=== PATIENT | male | born 1960 | race Caucasian/White ===

== ENCOUNTER 2017-03-08 22:16 | Emergency (ER) | payer BC ==
--- NOTE | 2017-03-08 23:04 | RAD ---
HISTORY: Fall, right foot pain COMPARISONS: None VIEWS: 3, Frontal, lateral, and oblique views of the right foot FINDINGS: BONE DENSITY: Normal. BONES: There is a nondisplaced fracture of the base of the fifth metatarsal. JOINTS: There is osteoarthritis of the first MTP joint ALIGNMENT: There is no dislocation. SOFT TISSUES: Unremarkable. OTHER FINDINGS: None. IMPRESSION: NONDISPLACED FRACTURE OF THE BASE OF THE FIFTH METATARSAL
--- NOTE | 2017-03-09 00:11 | ED ---
Lower Extremity - HPI Summary HPI Summary: 56M presents with right foot pain. He states he fell of a stone wall and twisted his foot. He denies any numbness or tingling. He has been ambulating with pain. He has not taken anything for his pain. He states he is going to a trip this weekend and does not want a cast. He denies any previous injury to the area. He denies any ankle pain. - History of Current Complaint Chief Complaint: EDExtremityLower Stated Complaint: FALL/RT FOOT INJURY Time Seen by Provider: 03/08/17 23:21 Pain Intensity: 2 - Allergies/Home Medications Allergies/Adverse Reactions: Allergies Allergy/AdvReac Type Severity Reaction Status Date / Time No Known Allergies Allergy Verified 03/08/17 23:22 PMH/Surg Hx/FS Hx/Imm Hx Endocrine/Hematology History: Denies: Hx Anticoagulant Therapy Respiratory History: Denies: Hx Asthma Infectious Disease History: No Infectious Disease History: Denies: Traveled Outside the [place] in Last 30 Days - Family History Known Family History: Positive: Cardiac Disease - Social History Alcohol Use: Rare Substance Use Type: Reports: None Smoking Status (MU): Never Smoked Tobacco Review of Systems Negative: Fever Negative: Chest Pain Negative: Shortness Of Breath Positive: Myalgia - right foot pain All Other Systems Reviewed And Are Negative: Yes Physical Exam Triage Information Reviewed: Yes Vital Signs On Initial Exam: Initial Vitals Pulse Resp BP Pulse Ox 58 18 148/88 100 03/08/17 22:23 03/08/17 22:23 03/08/17 22:23 03/08/17 22:23 Vital Signs Reviewed: Yes Appearance: Positive: Well-Appearing Skin: Positive: Warm, Dry Head/Face: Positive: Normal Head/Face Inspection Eyes: Positive: Normal, Conjunctiva Clear Respiratory/Lung Sounds: Positive: Clear to Auscultation, Breath Sounds Present Cardiovascular: Positive: Normal, RRR Musculoskeletal: Positive: Other - tender over right 5th metatarsal with edema present, good pulses, capillary refill < 2 secs, sensation grossly intact, no step off Diagnostics - Vital Signs Vital Signs Temp Pulse Resp BP Pulse Ox 03/08/17 23:20 98.6 F 58 16 150/85 100 03/08/17 22:23 58 18 148/88 100 - Laboratory Lab Statement: Any lab studies that have been ordered have been reviewed, and results considered in the medical decision making process. - Radiology foot Xray Interpretation: Positive (See Comments) - IMPRESSION: NONDISPLACED FRACTURE OF THE BASE OF THE FIFTH METATARSAL Radiology Interpretation Completed By: Radiologist Lower Extremity Course/Dx - Course Course Of Treatment: 56M presents with right foot pain today s/p falling on foot. pain is greatest over pinky toe. has edema present there. on exam tender over head of 5th metarsal. xray shows fracture there. discussed with patient and patient would only like a walking boot and with follow up with ortho. gave crutches to try and stay over of it as much as possible. patient will take ibuprofen for pain. patient understands and agrees with plan - Diagnoses Differential Diagnosis/HQI/PQRI: Positive: Fracture (Closed), Sprain, Strain Provider Diagnoses: Nondisplaced fracture of fifth right metatarsal bone Discharge - Discharge Plan Condition: Good Disposition: HOME Patient Education Materials: Foot Fracture in Adults (ED) Referrals: Non Staff,Doctor [Primary Care Provider] - Frankie Jaramillo MD [Medical Doctor] - Additional Instructions: Take Tylenol or ibuprofen every 6 hours as needed for pain Apply ice, rest, elevate Keep boot on area, keep off foot as much as possible Follow up with ortho Return to ED if any new or worsening symptoms
[2017-03-09 01:42] VITALS: BP 130/77
== END 2017-03-09 01:30 | disposition home or self-care (01) ==
LOC: ED 22:16
DX: S92.354A Nondisplaced fracture of fifth metatarsal bone, right foot, initial encounter for closed fracture (principal); W17.89XA Other fall from one level to another, initial encounter; Y93.9 Activity, unspecified; Y92.9 Unspecified place or not applicable
CPT/HCPCS: 99282

== ENCOUNTER 2017-06-07 18:27 | Observation (INO) | payer BC ==
[2017-06-07 19:21] LABS: Hematocrit 43 % (42-52); Hemoglobin 14.3 g/dl (14.0-18.0); Mean Corpuscular HGB Conc 34 g/dl (31-36); Mean Corpuscular Hemoglobin 29 pg (27-31); Mean Corpuscular Volume 87 fL (80-94); Mean Platelet Volume 8 um3 (7.4-10.4); Red Blood Count 4.89 10^6/ul (4.0-5.4); Red Cell Distribution Width 13 % (10.5-15); White Blood Count 6.6 10^3/ul (3.5-10.8)
[2017-06-07 19:36] LABS: Albumin 4.5 g/dL (3.2-5.2); BUN/Creatinine Ratio 12.7 (8-20); Calcium 9.5 mg/dL (8.6-10.3); EGFR African American 81.8 (>60); EGFR Non-African American 63.6 (>60); Globulin 2.3 g/dL (2-4); Magnesium 2.4 mg/dL (1.9-2.7); Potassium 4.3 mmol/L (3.5-5.0); Total Bilirubin 0.6 mg/dL (0.2-1.0); Total Protein 6.8 g/dL (6.4-8.9)
[2017-06-07 19:37] LABS: Troponin I 0.03 ng/mL (<0.04)
[2017-06-07] MEDS ORDERED: Acetaminophen TAB* 325 MG PO PRN (20:40)
[2017-06-07] MEDS ORDERED: CMCS: Melatonin (NF) 3 MG TAB PO PRN (20:42)
[2017-06-07] MEDS ORDERED: Ondansetron INJ* 2 MG/ML VIAL IV PRN (20:42)
[2017-06-07] MEDS ORDERED: Heparin DRIP 25,000 UNITS(*) 25,000 UNITS/500 ML BAG IVPB SCH (20:45)
[2017-06-07] MEDS ORDERED: NS 0.9% 1000 ML* 1,000 ML IV ONE (20:45)
[2017-06-07 20:58] LABS: TSH (Thyroid Stimulating Horm) 1.88 mcIU/mL (0.34-5.60)
[2017-06-07] MEDS ORDERED: Heparin VIAL(*) 5000 UNITS/ML VIAL (FIVE THOUSAND) IV SCH (21:00)
--- NOTE | 2017-06-07 21:32 | ED ---
Dru Tamez Thomas, scribed for Alex Navarro MD on 06/07/17 at 1933 . Palpitations / Dysrhythmia - HPI Summary HPI Summary: The pt is a 56 y/o M BIBA c/o palpitations characterized fast and not a good pulse that began this morning. He had an appointment earlier today with his PMD for this complaint and was referred to [facility] ED. The palpitations are aggravated and alleviated by nothing. The patient treated the palpitations with ASA this morning as well as by EMS en route to [facility]. He still feels these palpitations in the ED. Pt additionally c/o lightheadedness, dizziness, and shortness of breath on exertion. Pt denies CP or any other pains. He says that he went on a strenuous bike ride earlier today. He says that he goes on 20-25 mile bike rides a few times a week. He denies any caffeine intake today. PMHx: previously healthy. PSHx: R ankle repair. SHx: no smoking, rare alcohol use, no illicit drug use. FHx: CAD. - History of Current Complaint Chief Complaint: EDDysrhythmPalp Time Seen by Provider: 06/07/17 18:31 Hx Obtained From: Patient Onset/Duration: Sudden Onset, Lasting Hours - onset this morning, Still Present Character: Fast, Irregular - "not a good pulse" Aggravating: Nothing Alleviating: Nothing Associated Signs & Symptoms: Dizzy, Shortness of Breath - on exertion Related History: Similar Episode/Dx as - No similar prior episodes. - Allergy/Home Medications Allergies/Adverse Reactions: Allergies Allergy/AdvReac Type Severity Reaction Status Date / Time No Known Allergies Allergy Verified 03/08/17 23:22 PMH/Surg Hx/FS Hx/Imm Hx Previously Healthy: Yes Endocrine/Hematology History: Denies: Hx Anticoagulant Therapy Respiratory History: Denies: Hx Asthma - Surgical History Surgery Procedure, Year, and Place: L ankle repair Infectious Disease History: No Infectious Disease History: Denies: Traveled Outside the [place] in Last 30 Days - Family History Known Family History: Positive: Cardiac Disease - Social History Alcohol Use: Rare Substance Use Type: Reports: None Smoking Status (MU): Never Smoked Tobacco Review of Systems Negative: Fever Positive: Palpitations - characterized as fast . Negative: Chest Pain Positive: Shortness Of Breath - on exertion Negative: Other - NEG: any other pains Neurological: Other - POS: lightheadedness, dizziness All Other Systems Reviewed And Are Negative: Yes Physical Exam Triage Information Reviewed: Yes Vital Signs On Initial Exam: Initial Vitals Temp Pulse Resp BP Pulse Ox 98.5 F 89 14 133/102 96 06/07/17 18:43 06/07/17 18:43 06/07/17 18:43 06/07/17 18:43 06/07/17 18:43 Vital Signs Reviewed: Yes Appearance: Positive: Well-Appearing, No Pain Distress, Well-Nourished Skin: Positive: Warm, Skin Color Reflects Adequate Perfusion, Dry Head/Face: Positive: Normal Head/Face Inspection Eyes: Positive: Normal ENT: Positive: Normal ENT inspection Neck: Positive: Supple, Nontender Respiratory/Lung Sounds: Positive: Clear to Auscultation, Breath Sounds Present Cardiovascular: Positive: Other - He has an irregular heartrate. Abdomen Description: Positive: Nontender, Soft Bowel Sounds: Positive: Present Musculoskeletal: Positive: Normal Neurological: Positive: Normal Psychiatric: Positive: Normal, Affect/Mood Appropriate - [place] Coma Scale Coma Scale Total: 15 Diagnostics - Vital Signs Vital Signs Temp Pulse Resp BP Pulse Ox 06/07/17 18:43 98.5 F 79 14 133/102 96 - Laboratory Lab Results: Lab Results 06/07/17 Range/Units 19:11 WBC 6.6 (3.5-10.8) 10^3/ul RBC 4.89 (4.0-5.4) 10^6/ul Hgb 14.3 (14.0-18.0) g/dl Hct 43 (42-52) % MCV 87 (80-94) fL MCH 29 (27-31) pg MCHC 34 (31-36) g/dl RDW 13 (10.5-15) % Plt Count 239 (150-450) 10^3/ul MPV 8 (7.4-10.4) um3 Neut % (Auto) 58.9 (38-83) % Lymph % (Auto) 26.4 (25-47) % [place] % (Auto) 10.5 H (1-9) % Eos % (Auto) 3.3 (0-6) % Baso % (Auto) 0.9 (0-2) % Absolute Neuts (auto) 3.9 (1.5-7.7) 10^3/ul Absolute Lymphs (auto) 1.7 (1.0-4.8) 10^3/ul Absolute Monos (auto) 0.7 (0-0.8) 10^3/ul Absolute Eos (auto) 0.2 (0-0.6) 10^3/ul Absolute Basos (auto) 0.1 (0-0.2) 10^3/ul Absolute Nucleated RBC 0 10^3/ul Nucleated RBC % 0 Result Diagrams: 06/07/17 19:11 06/07/17 19:11 Lab Statement: Any lab studies that have been ordered have been reviewed, and results considered in the medical decision making process. - EKG 20:17 Cardiac Rate: NL - 80 BPM EKG Interpretation: A-Fib with a controlled rate. Nonspecific anterior changes. Course/Dx - Course Course Of Treatment: Mr. Watson presented in A-Fib with a controlled rate. His labs were fine and Dr. Lynne recommended admission for cardioversion tomorrow. He was started on metoprolol and heparin. - Diagnoses Provider Diagnoses: Atrial fibrillation - Physician Notifications Discussed Care Of Patient With: Drake Lynne Time Discussed With Above Provider: 20:12 Instructed by Provider To: Other - We discussed patient care. I also consulted with Dr. Zelaya, sapna, who admits the patient to [facility] at 20:31. Discharge - Discharge Plan Condition: Fair Disposition: ADMITTED TO [facility] Discharge Disposition Comment: By Dr. Zelaya at 20:31 The documentation as recorded by the Dru kincaid Thomas accurately reflects the service I personally performed and the decisions made by me, Alex Navarro MD.
--- NOTE | 2017-06-07 22:26 | HP ---
H&P (Free Text) History and Physical: PCP: Yamil Saeed MD Date/Time of Evaluation: 06/07/20172039 CC: fatigue, palpitations HPI: Mr Watson is a 56YO healthy male who bicycles 10-20 miles 2-3x/week. He was riding this morning with a friend, Syl Hill MD, when after riding hard up hill he lost all energy. He went on to work noting SOB with walking up stairs or with exertion. He also noted an irregular pulse. He has felt light- headedness and palpitations intermittently, but no chest pain, N/V, or sweats. He denies HX of similar. PMedHx notable only for an uncomplicated UTI 7 years ago Medications denies Allergies No Known Allergies Allergy (Verified 03/08/17 23:22) PSurgHx cyst excision R ankle SocHx: no tobacco, 2-3 glasses of wine weekly, no recreational drugs; lives with his ; [place] entomologist; full code status FamHx: Mother: alive in her 90s w/ HTN; Father: passed at 90 from complications of dementia ROS: as above, otherwise reviewed and all were negative Constitutional: NAD, normally developed, well-nourished white male vitals: Vital Signs Temp 36.3 C 06/07/17 22:08 Pulse 72 06/07/17 22:08 Resp 16 06/07/17 22:08 BP 139/67 06/07/17 22:08 Pulse Ox 98 06/07/17 22:08 Intake & Output 06/06/17 06/07/17 06/07/17 23:59 11:59 23:59 Weight 72.575 kg HEENM: atraumatic; sclera/conjunctiva: non-icteric/clear; hearing: clinically intact; oropharynx: clear, mucosa moist Neck: soft tissue: non-tender; thyroid: normal Pulmonary: clear to auscultation bilaterally, good aeration, no accessory muscle use CV: IR/IR, normal S1S2, no carotid bruit, no jugular venous distention, 2+ B DP/ PT, no edema Abdominal: soft, non-distended, non-tender, no rebound/guarding/rigidity, normoactive bowel sounds, no hepatosplenomegaly or masses, no costovertebral angle tenderness Musculoskeletal: general: grossly intact; gait: stable Integumental: normal appearance and texture of exposed skin Psychiatric orientation: AA&O to PPS affect: calm mood: pleasant eye contact: good content: reliable responses: timely insight: good Testing: Lab Results 06/07/17 06/07/17 06/07/17 Range/Units 19:11 19:11 19:11 WBC 6.6 (3.5-10.8) 10^3/ul RBC 4.89 (4.0-5.4) 10^6/ul Hgb 14.3 (14.0-18.0) g/dl Hct 43 (42-52) % MCV 87 (80-94) fL MCH 29 (27-31) pg MCHC 34 (31-36) g/dl RDW 13 (10.5-15) % Plt Count 239 (150-450) 10^3/ul MPV 8 (7.4-10.4) um3 Neut % (Auto) 58.9 (38-83) % Lymph % (Auto) 26.4 (25-47) % [place] % (Auto) 10.5 H (1-9) % Eos % (Auto) 3.3 (0-6) % Baso % (Auto) 0.9 (0-2) % Absolute Neuts (auto) 3.9 (1.5-7.7) 10^3/ul Absolute Lymphs (auto) 1.7 (1.0-4.8) 10^3/ul Absolute Monos (auto) 0.7 (0-0.8) 10^3/ul Absolute Eos (auto) 0.2 (0-0.6) 10^3/ul Absolute Basos (auto) 0.1 (0-0.2) 10^3/ul Absolute Nucleated RBC 0 10^3/ul Nucleated RBC % 0 Sodium 136 (133-145) mmol/L Potassium 4.3 (3.5-5.0) mmol/L Chloride 101 (101-111) mmol/L Carbon Dioxide 28 (22-32) mmol/L Anion Gap 7 (2-11) mmol/L BUN 15 (6-24) mg/dL Creatinine 1.18 H (0.67-1.17) mg/dL Est GFR ( Amer) 81.8 (>60) Est GFR (Non-Af Amer) 63.6 (>60) BUN/Creatinine Ratio 12.7 (8-20) Glucose 127 H (70-100) mg/dL Lactic Acid 1.6 (0.5-2.0) mmol/L Calcium 9.5 (8.6-10.3) mg/dL Magnesium 2.4 (1.9-2.7) mg/dL Total Bilirubin 0.60 (0.2-1.0) mg/dL AST 23 (13-39) U/L ALT 15 (7-52) U/L Alkaline Phosphatase 27 L (34-104) U/L Troponin I 0.03 (<0.04) ng/mL Total Protein 6.8 (6.4-8.9) g/dL Albumin 4.5 (3.2-5.2) g/dL Globulin 2.3 (2-4) g/dL Albumin/Globulin Ratio 2.0 (1-3) TSH 1.88 (0.34-5.60) mcIU/mL ECG, personally reviewed: AFIB rate 80, non-diagnostic variable ST elevation V4- 6 CXR, personally reviewed: ordered, pending Impression: healthy 56M presenting in new onset symptomatic rate controlled AFIB DIAGNOSIS & PLAN Primary new onset symptomatic rate controlled AFIB : heparin GTT : metoprolol 25mg PO BID, start tonight : IVFs : Larry Lynne MD cardiology consulted; will evaluate in AM : supplemental oxygen : supportive care abnormal ECG : trend troponin : repeat ECG in AM Secondary none Admission Rational: CDU observation for new onset AFIB DVTp: heparin GTT Code Status: full HCP:
[2017-06-07] MEDS: Metoprolol Tartrate TAB* 25 MG PO SCH (22:28)
[2017-06-07 22:34] LABS: Hematocrit 42 % (42-52); Hemoglobin 14.3 g/dl (14.0-18.0); Mean Corpuscular HGB Conc 34 g/dl (31-36); Mean Corpuscular Hemoglobin 29 pg (27-31); Mean Corpuscular Volume 87 fL (80-94); Mean Platelet Volume 8 um3 (7.4-10.4); Red Blood Count 4.89 10^6/ul (4.0-5.4); Red Cell Distribution Width 13 % (10.5-15)
--- NOTE | 2017-06-07 23:16 | RAD ---
Indication: Shortness of breath. Atrial fibrillation and RVR. Comparison: No relevant prior exams available on the [facility] PACS for comparison. Technique: Upright AP 2239 hours Report: Clear lungs and pleural spaces. Negative for pneumothorax. Upper normal heart size. Unremarkable central pulmonary vasculature and mediastinal contours. Normal soft tissue contours and osseous structures. IMPRESSION: No evidence for pulmonary edema. No radiographic acute cardiopulmonary process evident.
[2017-06-08] MEDS: NS 0.9% 1000 ML* 1,000 ML IV SCH ×2 (00:18→08:58)
[2017-06-08 05:11] LABS: BUN/Creatinine Ratio 13.1 (8-20); Calcium 8.6 mg/dL (8.6-10.3); EGFR African American 100.2 (>60); EGFR Non-African American 77.9 (>60); Potassium 4.1 mmol/L (3.5-5.0)
[2017-06-08 05:13] LABS: Troponin I 0.01 ng/mL (<0.04)
[2017-06-08] MEDS ORDERED: Omeprazole CAP* 20 MG PO SCH (06:00)
[2017-06-08] MEDS: Metoprolol Tartrate TAB* 25 MG PO SCH (08:56)
--- NOTE | 2017-06-08 09:48 | ECHO ---
Patient: JESUS ALBERTO ALTMAN [facility] Rec#: [id number] : 1960 Date: 06/08/2017 Age: 56y Height: 182.9 cm / 72.0 in Weight: 75.3 kg / 166.0 lbs Sex: M BSA: 2 Room#: 433 Admit Date#: 06/07/2017 Type: Inpatient Referring: Isael Zelaya MD Reading: Mathieu Roth MD [employer]: Nela Escalante RN RDCS CC: Will Saeed MD Transthoracic Echocardiogram Indication: Atrial fibrillation BP: 116/83 HR: 85 Rhythm: A-Fib Findings History: Previously healthy Technical Comments: The study quality is fair. Completed at 0910. Left Ventricle: The left ventricular chamber size is normal. Global left ventricular wall motion and contractility are within normal limits. Left ventricular systolic function is at the lower limits of normal. The estimated ejection fraction is 50-55%. The assessment of diastolic function is non-diagnostic. Left Atrium: The left atrium is slightly dilated. Right Ventricle: The right ventricular cavity size is normal. The right ventricular global systolic function is low normal. Right Atrium: The right atrium is mildly dilated. Aortic Valve: The aortic valve is trileaflet. The aortic valve leaflets are mildly thickened. There is a trace of aortic regurgitation. There is no evidence of aortic stenosis. Mitral Valve: The mitral valve leaflets are mildly thickened. There is mild mitral regurgitation. There is no evidence of mitral stenosis. Tricuspid Valve: The tricuspid valve leaflets are normal. There is trace to mild tricuspid regurgitation. No pulmonary hypertension is noted. Pulmonic Valve: The pulmonic valve structure is not well visualized. There is trace to mild pulmonic regurgitation. There is no pulmonic stenosis. Pericardium: A trivial pericardial effusion is visualized. The pericardial effusion is seen adjacent to the right ventricle. Aorta: There is mild dilatation of the ascending aorta. There is no dilatation of the aortic arch. There is no dilation of the aortic root. Pulmonary Artery: The main pulmonary artery is not well visualized. Venous: The inferior vena cava appears normal in size. There is a greater than 50% respiratory change in the inferior vena cava dimension. Conclusions Left ventricular systolic function is at the lower limits of normal. The estimated ejection fraction is 50-55%. The left atrium is slightly dilated. The right atrium is mildly dilated. The right ventricular global systolic function is low normal. There is a trace of aortic regurgitation. There is mild mitral regurgitation. There is trace to mild tricuspid regurgitation. No pulmonary hypertension is noted. There is trace to mild pulmonic regurgitation. There is mild dilatation of the ascending aorta. The patient was noted to be in atrial fibrillation throughout the study. No reports of prior studies are offered for comparison. Measurements Name Value Normal Range RVDdMajor (2D) 3.5 cm (2.2 - 4.4) RAd ISD 4CH 5.9 cm (3.4 - 4.9) RA (A4C)W 4.4 cm (2.9 - 4.6) IVSd (2D) 1 cm (0.6 - 1) LVPWd (2D) 1 cm (0.6 - 1) LVIDd (2D) 4.4 cm (3.6 - 5.4) LVIDs (2D) 3.3 cm - Aortic Annulus 2.3 cm (1.4 - 2.6) Ao root diameter (2D) 3.4 cm (2.1 - 3.5) Ascending Ao 3.6 cm (2.1 - 3.4) Aortic arch 2.4 cm (1.8 - 3.4) LA dimension (AP) 2D 3.2 cm (2.3 - 3.8) LAd ISD 4CH 5.5 cm (2.9 - 5.3) LA ISD 4CH W 4 cm (2.5 - 4.5) Name Value Normal Range LA ESV SP 4CH (A/L) 56 ml - LA ESV SP 2CH (A/L) 56 ml - LA ESV BP (A/L) 59 ml - LA ESV BP (A/L) index 29.9 ml/m2 - LA ESV SP 4CH (MOD) 51 ml - LA ESV SP 2CH (MOD) 54 ml - Name Value Normal Range MV E-wave Vmax 0.64 m/sec - MV deceleration time 204 msec - LV septal e' Vmax 0.14 m/sec - LV lateral e' Vmax 0.16 m/sec - LV E:e' septal ratio 4.6 ratio - LV E:e' lateral ratio 4 ratio - Name Value Normal Range AV Vmax 0.85 m/sec - AV VTI 16.6 cm - AV peak gradient 2.9 mmHg - AV mean gradient 1.7 mmHg - LVOT Vmax 0.73 m/sec - LVOT VTI 13.4 cm - LVOT peak gradient 2.2 mmHg - LVOT mean gradient 1.3 mmHg - ROSEANN Vmax 0.58 m/sec - Name Value Normal Range TR Vmax 1.8 m/sec - TR peak gradient 13 mmHg - RAP 3 mmHg - RVSP 16 mmHg - IVC diameter 1.9 cm - Name Value Normal Range PV Vmax 0.53 m/sec -
[2017-06-08] MEDS ORDERED: Apixaban* 5 MG TAB PO SCH (10:00)
[2017-06-08] MEDS ORDERED: fentaNYL* 50 MCG/ML 2 ML VIAL (100 MCG VIAL) ONE (11:15)
[2017-06-08] MEDS ORDERED: Flumazenil* 0.1 MG/ML 5 ML MDV ONE (11:15)
[2017-06-08] MEDS ORDERED: Midazolam* 1 MG/ML 5 ML VIAL (5 MG) ONE (11:15)
[2017-06-08] MEDS ORDERED: Naloxone* 0.4 MG/ML 1 ML VIAL ONE (11:15)
[2017-06-08 12:22] VITALS: BP 112/76
--- NOTE | 2017-06-08 12:52 | DCNOTE ---
Patient seen after cardioversion. Feeling better, says he notices a difference in his heart rhythm. Understands plans for continuation of rate controlling ( Diltiazem) and blood thinning (Eliquis) medications. On exam, mild bradycardia, regular, lungs CTA B?L, no w/r/r, abd soft, NTND, BS+ Discharge home on CCB and Eliquis and follow-up as outpatient with Dr. Patrick and PCP.
--- NOTE | 2017-06-08 13:30 | CONS ---
CC: Karla Levin NP, [facility] CARDIOLOGY CONSULTATION: DATE OF CONSULT: 06/08/17 INDICATION FOR CONSULTATION: Atrial fibrillation. HISTORY OF PRESENT ILLNESS: The patient is a 56-year-old healthy gentleman, who had an episode of a trial fibrillation starting yesterday. The patient is very active. He rides his bike 2 to 3 times a week, at least 10 to 20 miles. Yesterday, he was out riding his bike and noticed a sudden onset of shortness of breath. His overall exercise capacity dropped precipitously. He was able to end his ride. He went to work at [employer], but felt poorly throughout the day. He said he felt his heart ra te and it just felt weak and irregular. Ultimately, he went to [facility] and was noted to be i n atrial fibrillation. He was sent to the hospital for evaluation. The patient was seen in the doctors hospital room and found to be in atrial fibrillation with controlled ventricular response. The patien t had no other complaints. He had no chest pain. He had no lightheadedness or dizziness. He had no orthopnea. PAST MEDICAL HISTORY: Urinary tract infection 7 years ago. PAST SURGICAL HISTORY: None. MEDICATIONS: None. ALLERGIES: None. FAMILY HISTORY: No family history of early coronary artery disease or atrial fibrillation. SOCIAL HISTORY: He is . He exercises regularly. Denies tobacco or alcohol use. 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 REVIEW OF SYSTEMS: Negative for fevers and chills. Negative for changes in bowel or bladder habit, negative for changes in weight. Other 12-point review was unremarkable. PHYSICAL EXAM: Height is 6 feet, weight is 166 pounds. Blood pressure 135/85, heart rate is 91, te mperature is 97.8, respiratory rate is 20. Sclerae anicteric. Oropharynx is pink without erythema. Carotids are 2+ without bruits. JVD is normal. Thyroid is normal. Cardiac Exam: S1, S2 without any murmurs, rubs, or gallops. Lungs: Clear to auscultation bilaterally. There is no dullness to percussion. Abdomen: Soft, nontender, nondistended with normoactive bowel sounds. Extremities: Sh ow no edema. He has 2+ pulses throughout. The patient is awake, alert, and oriented. He moves all 4 extremities equally. DIAGNOSTIC STUDIES/LAB DATA: Chemistries within normal limits. BUN and creatinine are normal. AST and ALT are normal. Troponins are negative x3. TSH 1.88. CBC within normal limits. IMPRESSION: This is a 56-year-old gentleman with a new onset of atrial fibrillation. He appears to have lone atrial fibrillation. His echocardiogram is pending. For now, my recommendation is to change him from heparin to Eliquis. We will change him from metopr olol to Cardizem CD 120. The patient will undergo cardioversion today if he does not convert to nor mal sinus rhythm on his own. I will see the patient in followup after discharge for further evaluat ion. [id number]/[facility] #: [id number]
--- NOTE | 2017-06-08 15:36 | CARD ---
CC: [facility] * CARDIOVERSION NOTE: DATE OF STUDY: 06/08/17 - ROOM #433 PROCEDURE: Cardioversion. INDICATION: Atrial fibrillation. HISTORY: The patient is a 56-year-old gentleman who had an episode of atrial fibrillation starting yesterday. He was admitted to the hospital last night. The patient underwent an echocardiogram, which showed normal LV size and systolic function. No significant valvular abnormalities. No evidence of shunting. His laboratory studies are all within normal limits. Cardioversion was recommended. DESCRIPTION OF PROCEDURE: Patient was brought to the procedure room in a fasting state. Informed consent had been obtained prior to the procedure. All labs have been reviewed. The patient was given 4 mg of Versed and 25 mcg of fentanyl for conscious sedation. Patient was cardioverted with 120 joules of synchronized biphasic energy. Patient converted to normal sinus rhythm. Patient tolerated the procedure well and no complications. The patient will be discharged from the hospital on Eliquis 5 mg a day and Cardizem CD 120 mg a day. I will see the patient in followup in 2 weeks. [id number]/[facility] #: [id number] [facility]
--- NOTE | 2017-06-09 05:35 | DS ---
CC: Dr. Saeed; Dr. Patrick * DISCHARGE SUMMARY: DATE OF ADMISSION: 06/07/17 DATE OF DISCHARGE: 06/08/17 PCP: Dr. Saeed. PRINCIPAL DISCHARGE DIAGNOSIS: Atrial fibrillation. DISCHARGE MEDICATION REGIMEN: 1. Diltiazem CD 120 mg by mouth daily. 2. Apixaban 5 mg by mouth 2 times daily. STUDIES DONE DURING HOSPITALIZATION: Chest x-ray. Impression: No evidence for pulmonary edema. No radiographic acute cardiopulmonary process evident. Transthoracic echocardiogram. Conclusions: Left ventricular systolic function at the lower limits of normal. Estimated ejection fraction is 50% to 55%. The left atrium is slightly dilated. The right atrium is mildly dilated. Right ventricular global systolic function is low normal. There is trace aortic regurgitation, mild mitral regurgitation, [id number] tricuspid regurgitation. No pulmonary hypertension is noted. There is [id number] pulmonic regurgitation, mild dilatation of the ascending aorta. The patient was noted to be in AFib throughout the study. HISTORY OF PRESENT ILLNESS AND HOSPITAL SUMMARY: Please see the full history and physical by Dr. Isael Zelaya for full details. Briefly, Mr. Watson is a 56- year-old man with no past medical history, who presented to the hospital with fatigue, shortness of breath on exertion, and an irregular pulse. The patient was found to be in atrial fibrillation, which is a new diagnosis for him. He was started on anticoagulation. Thyroid studies were normal. He was evaluated by Cardiology and was taken for a TASNEEM with cardioversion, which was successful. He was back in sinus rhythm with mild bradycardia, which he states is his baseline. Dr. Patrick wanted the patient discharged on Eliquis as well as low-dose diltiazem, which was prescribed. He will follow up with Dr. Patrick in the office as well as with his PCP. TIME SPENT: Total time spent on this discharge was 35 minutes. This is a summary of the hospitalization, please see the full medical record for further details. [id number]/[facility] #: [id number] [facility] CENTERSridhar
[2017-06-09] MEDS ORDERED: Diltiazem CD CAP* 120 MG PO SCH (09:00)
== END 2017-06-08 14:28 | disposition home or self-care (01) ==
LOC: ED 18:27 → MEDTELE 20:37
PROVIDERS: ADMIT Hospitalist; ATTEND Hospitalist
DX: I48.91 Unspecified atrial fibrillation (principal); R06.02 Shortness of breath; R53.83 Other fatigue; I34.0 Nonrheumatic mitral (valve) insufficiency; I36.1 Nonrheumatic tricuspid (valve) insufficiency
CPT/HCPCS: 36415; 71010; 80048; 80053; 83605; 83735; 84443; 84484; 84520; 85025; 85730; 92960; 93005; 93306; 93312; 93325; 96365; 96366; 96372; 99156; 99285; G0378; J1644; J2250; J2310; J3010

== ENCOUNTER 2017-07-18 12:15 | Emergency (ER) | payer BC ==
[2017-07-18 12:24] VITALS: BP 168/89
--- NOTE | 2017-07-18 15:48 | UC ---
Radha Tamez Emily, scribed for Senia Crouch DO on 07/18/17 at 1241 . Palpitation/Dysrhythmia HP - HPI Summary HPI Summary: This patient is a 56 year old M presenting to urgent care with a chief complaint of palpitations that began yesterday but seem to have resolved. pt called cardiology and spoke with the taxation inspector, dr gómez who requested that we obtain an ekg to see if he was in afib. Symptoms aggravated by nothing. Symptoms alleviated by nothing. Patient reports racing heart and dizziness. Patient denies SOB, CP, pain in L neck/jaw/arm, diaphoresis, abd pain, and headache. Pt has hx of Afib in May and was cardioverted for this condition. Medications reviewed this visit. - History of Current Complaint Chief Complaint: UCGeneralIllness Stated Complaint: NEEDS EKG Time Seen by Provider: 07/18/17 12:33 Hx Obtained From: Patient Onset/Duration: Sudden Onset, Lasting Days, Still Present Character: Fast Aggravating Factor(s): Nothing Alleviating Factor(s): Nothing Associated Signs & Symptoms: Positive: Dizzy. Negative: Chest Pain, Shortness of Breath, Diaphoresis - Allergy/Home Medications Allergies/Adverse Reactions: Allergies Allergy/AdvReac Type Severity Reaction Status Date / Time No Known Allergies Allergy Verified 03/08/17 23:22 PMH/Surg Hx/FS Hx/Imm Hx Previously Healthy: No Cardiovascular History: Atrial Fibrillation Other Respiratory History: Negative asthma Other History Of: Negative For: Anticoagulant Therapy - Surgical History Surgical History: Yes Surgery Procedure, Year, and Place: L ankle repair - Family History Known Family History: Positive: Cardiac Disease - Social History Occupation: Employed Full-time Lives: With Family Alcohol Use: Occasionally Substance Use Type: None Smoking Status (MU): Never Smoked Tobacco Review of Systems Skin: Other - Negative diaphoresis Respiratory: Other - Negative SOB Cardiovascular: Palpitations, Other - Positive "racing heart". Negative CP Gastrointestinal: Other - Negative abd pain Musculoskeletal: Other: - Negative pain in L neck/jaw/arm Neurological: Other - Positive dizziness. Negative headache All Other Systems Reviewed And Are Negative: Yes Physical Exam Triage Information Reviewed: Yes Appearance: Well-Appearing, No Pain Distress, Well-Nourished Vital Signs: Initial Vital Signs Temp 98.0 F 10/22/17 12:19 Pulse 71 07/18/17 12:19 Resp 18 07/18/17 12:19 BP 168/89 07/18/17 12:19 Pulse Ox 100 07/18/17 12:19 Vital Signs Reviewed: Yes Eyes: Positive: Conjunctiva Clear. Negative: Discharge ENT: Positive: Hearing grossly normal. Negative: Muffled/hoarse voice Neck exam: Normal Neck: Positive: Supple Respiratory: Positive: Lungs clear, Normal breath sounds, No respiratory distress, No accessory muscle use Cardiovascular: Positive: RRR, No Murmur Musculoskeletal Exam: Normal Neurological: Positive: Alert, Muscle Tone Normal Psychological Exam: Normal Psychological: Positive: Age Appropriate Behavior Skin Exam: Normal Skin: Positive: Other - Warm. Dry. Normal Color Diagnostics - EKG Cardiac Rate: NL - An EKG taken at 1228 reveals nml sinus rhythm at [address] change ectopic beats. Palpitations Course/Dx - Course Course Of Treatment: This patient is a 56 year old M presenting to urgent care with a chief complaint of palpitations that began yesterday. Symptoms aggravated by nothing. Symptoms alleviated by nothing. Patient reports racing heart and dizziness. Patient denies SOB, CP, pain in L neck/jaw/arm, diaphoresis, abd pain, and headache. Pt has hx of Afib in May and was cardioverted for this condition. Medications reviewed this visit. Physical Exam Findings. Normal. Medical Decision Making. High blood pressure noted. An EKG taken at 1228 reveals nml sinus rhythm at [address] change ectopic beats. Personall rechecked his blood pressure with the manual cuff and found it to be 140/75. Dr. Gómez was called and reviewed ekg. She recommended that pt be discharged to home and instructed to call dr patrick tomorrow to schedule follow up. Patient will be discharged with follow up from Dr. Patrick and PCP. The patient is agreeable with this plan. - Differential Dx/Diagnosis Provider Diagnoses: Elevated blood pressure without diagnosis of hypertension. Palpitations Discharge - Discharge Plan Condition: Stable Disposition: HOME Patient Education Materials: Palpitations (ED) Referrals: Mike Patrick MD [Medical Doctor] - 1 Day (CALL TOMORROW TO SCHEDULE FOLLOW UP) Will Saeed MD [Primary Care Provider] - If Needed Additional Instructions: AT THE REQUEST OF THE TOXICOLOGIST, DR. GÓMEZ, WE DID AN EKG TO HELP HER ASSESS WHETHER OR NOT YOU ARE CURRENTLY IN AFIB. YOUR EKG HERE IN THE CLINIC SHOWS NORMAL SINUS RHYTHM. DR GÓMEZ HAS REVIEWED YOUR EKG AND HAS RECOMMENDED THAT YOU BE DISCHARGED TO HOME PROVIDED YOU CALL DR PATRICK, YOUR TOXICOLOGIST, TOMORROW TO SCHEDULE FOLLOW UP. IF YOU DEVELOP ANY NEW DIZZINESS, CHEST PAIN, SHORTNESS OF BREATH, NAUSEA, VOMITING, UPPER LEFT ABDOMINAL PAIN OR PAIN IN YOUR LEFT NECK/JAW/ ARM, YOU SHOULD GO TO THE ED IMMEDIATELY. DONT FORGET TO MENTION TO YOUR DOCTOR THAT YOU SNORE. Your blood pressure was elevated at this visit. That does not mean you have hypertension, it is probably due to your current condition. Please follow up with your primary care provider. The documentation as recorded by the Radha kincaid Emily accurately reflects the service I personally performed and the decisions made by me, Senia Crouch DO.
== END 2017-07-18 13:24 | disposition home or self-care (01) ==
LOC: UCEAST 12:15
DX: R03.0 Elevated blood-pressure reading, without diagnosis of hypertension (principal); Z82.49 Family history of ischemic heart disease and other diseases of the circulatory system
CPT/HCPCS: 93005; 99211; G0463

== ENCOUNTER 2018-02-21 07:11 | Emergency (ER) | payer BC ==
[2018-02-21 07:20] VITALS: BP 143/90
[2018-02-21] MEDS ORDERED: Acetaminophen TAB* 325 MG PO ONE (07:52)
--- NOTE | 2018-02-21 08:16 | RAD ---
HISTORY: Cough, short of breath, fever COMPARISONS: June 07, 2017 VIEWS: 4: Frontal dual-energy and lateral views of the chest. FINDINGS: CARDIOMEDIASTINAL SILHOUETTE: The cardiomediastinal silhouette is normal. TERRY: The terry are normal. PLEURA: The costophrenic angles are sharp. No pleural abnormalities are noted. LUNG PARENCHYMA: The lungs are clear. ABDOMEN: The upper abdomen is clear. There is no subphrenic gas. BONES AND SOFT TISSUES: No bone or soft tissue abnormalities are noted. OTHER: None. IMPRESSION: NO ACTIVE CARDIOPULMONARY DISEASE.
--- NOTE | 2018-02-21 08:48 | UC ---
Luis Tamez Gabriel, scribed for Wellington Son MD on 02/21/18 at 0728 . General HPI - HPI Summary HPI Summary: This patient is a 57 year old M presenting to [facility] with a chief complaint of clod symptoms since 02-18-18. The patient rates the pain 7/10 in severity. Patient reports sore throat, fever, myalgia, chest congestion, RAMOS, fatigue, and productive cough. Patient denies palpitations. - History of Current Complaint Chief Complaint: UCRespiratory Stated Complaint: COLD,COUGH Time Seen by Provider: 02/21/18 07:16 Hx Obtained From: Patient Onset/Duration: Lasting Days, Still Present Timing: Constant Onset Severity: Moderate Current Severity: Moderate Pain Intensity: 7 Associated Signs & Symptoms: Positive: Other - sore throat, fever, myalgia, - Allergy/Home Medications Allergies/Adverse Reactions: Allergies Allergy/AdvReac Type Severity Reaction Status Date / Time No Known Allergies Allergy Verified 02/21/18 07:20 Home Medications: Home Medications Dm/PE/Acetaminophen/Chlorphenr [Zayra-Shamrock Plus Cold &] 1 cap PO DAILY PRN [History Confirmed 02/21/18] PMH/Surg Hx/FS Hx/Imm Hx Cardiovascular History: Atrial Fibrillation Other History Of: Negative For: Anticoagulant Therapy - Surgical History Surgical History: Yes Surgery Procedure, Year, and Place: L ankle repair - Family History Known Family History: Positive: Cardiac Disease Negative: Diabetes, Seizure Disorder - Social History Alcohol Use: Rare Substance Use Type: None Smoking Status (MU): Never Smoked Tobacco Review of Systems Constitutional: Fever, Fatigue ENT: Sore Throat Respiratory: Cough, Other - chest congestion Musculoskeletal: Myalgia Neurological: Headache All Other Systems Reviewed And Are Negative: Yes Physical Exam - Summary Physical Exam Summary: General: mildly ill appearing, no pain distress Skin: warm, color reflects adequate perfusion, dry Head: normal Eyes: EOMI, STAN ENT: positive rhinorrhea, posterior pharynx is erythematous Neck: supple, nontender, positive anterior cervical lymphadenopathy Respiratory: CTA, breath sounds present Cardiovascular: RRR Abdomen: soft, nontender Bowel: present Musculoskeletal: normal, strength/ROM intact Neurological: sensory/motor intact, A&O x3 Psychological: affect/mood appropriate Triage Information Reviewed: Yes Vital Signs: Initial Vital Signs Temp 99.2 F 02/21/18 07:16 Pulse 72 02/21/18 07:16 Resp 16 02/21/18 07:16 BP 143/90 02/21/18 07:16 Pulse Ox 99 02/21/18 07:16 Vital Signs Reviewed: Yes Diagnostics - Radiology CXR Radiology Interpretation Completed By: Radiologist - No active cardiopulmonary disease. Dr. Son has reviewed this report. Course/Dx - Course Course Of Treatment: DISCUSSED RESULTS WITH THE PATIENT TO INCLUDE SYMPTOMATIC TREATMENT, ANTIBIOTIC INDICATIONS AND THE DIFFERENCE BETWEEN VIRAL AND BACTERIAL INFECTIONS. AT THIS TIME, THE PATIENT PREFERS TO START AN ANTIBIOTIC. BP noted and advised to follow up with PCP. F/U PMD; RETURN IF WORSE. - Differential Dx - Multi-Symptom Provider Diagnoses: BRONCHITIS. Elevated blood pressure without a previous diagnoses of hypertension Discharge - Sign-Out/Discharge Documenting (check all that apply): Discharge/Admit/Transfer - Discharge Plan Condition: Stable Disposition: HOME Prescriptions: Azithromyxin TIMI (NF) [Z-Timi (Zithromax) 250 mg tabs #6] 2 tab PO .TODAY, THEN 1 DAILY #6 tab Patient Education Materials: Acute Bronchitis (ED) Referrals: Will Saeed MD [Primary Care Provider] - Additional Instructions: FOLLOW UP WITH YOUR DOCTOR IF NOT COMPLETELY IMPROVED. GET RECHECKED FOR ANY WORSENING OF YOUR CONDITION OR QUESTIONS OR CONCERNS. Your blood pressure was elevated during today's visit, 143/90. Please follow up with your primary care provider in 1-2 weeks. - Billing Disposition and Condition Condition: STABLE Disposition: HOME The documentation as recorded by the Luis kincaid Gabriel accurately reflects the service I personally performed and the decisions made by me, Wellington Son MD.
== END 2018-02-21 08:50 | disposition home or self-care (01) ==
LOC: UCEAST 07:11
DX: J40 Bronchitis, not specified as acute or chronic (principal); R03.0 Elevated blood-pressure reading, without diagnosis of hypertension; I48.91 Unspecified atrial fibrillation; Z79.01 Long term (current) use of anticoagulants
CPT/HCPCS: 71046; 87502; 87651; 99212; A9270-GY; G0463

== ENCOUNTER 2022-06-11 12:29 | Observation (INO) ==
[2022-06-11 12:54] LABS: ABS Basophils 0.1 10^3/ul (0-0.2); ABS Eosinophils 0.3 10^3/ul (0-0.6); ABS Lymphocytes 1.1 10^3/ul (1.0-4.8); ABS Monocytes 0.4 10^3/ul (0-0.8); ABS Neutrophils 4.4 10^3/ul (1.5-7.7); Eosinophil % 4.6 %; Hematocrit 47 % (42-52); Hemoglobin 15.8 g/dL (14.0-18.0); Lymphocyte % 17.7 %; Mean Corpuscular HGB Conc 33 g/dL (31-36); Mean Corpuscular Hemoglobin 29 pg (27-31); Mean Corpuscular Volume 87 fL (80-94); Mean Platelet Volume 7.5 fL (7.4-10.4); Nucleated Red Blood Cells % 0.1; Platelet Count 275 10^3/uL (150-450); Red Blood Count 5.47 10^6 /uL (4.18-5.48); Red Cell Distribution Width 15 % (10-15); White Blood Count 6.3 10^3/uL (3.5-10.8)
[2022-06-11 12:59] LABS: INR 1.05 (0.89-1.11)
[2022-06-11 13:34] LABS: Albumin 4.6 g/dL (3.2-5.2); Albumin/Globulin Ratio 1.9 (1-3); Calcium 9.9 mg/dL (8.6-10.3); Globulin 2.4 g/dL (2-4); Potassium 4.3 mmol/L (3.5-5.0); Total Bilirubin 0.8 mg/dL (0.2-1.0); eGFR CKD-EPI 83.1 (>60)
[2022-06-11 14:23] LABS: High Sensitivity Troponin 1 Hr 6 pg/mL (<20)
[2022-06-11 17:16] LABS: Magnesium 2.2 mg/dL (1.9-2.7)
[2022-06-11 17:27] LABS: T4, Total 8.66 mcg/dL (6.09-12.23)
[2022-06-11 17:31] LABS: TSH Ultra Thyroid Stim Horm 1.77 mcIU/mL (0.34-5.60)
[2022-06-11] MEDS ORDERED: Metoprolol Tartrate 5 mg VIAL 5 ml VIAL (1 mg/ml) IV ONE (19:53)
[2022-06-12 11:06] VITALS: BP 144/93
== END 2022-06-12 13:55 | disposition home or self-care (01) ==
LOC: EDHOLD 12:29 → ED 12:29 → SUATTDRO 06-12 00:24 → MEDTELE 06-12 06:00
PROVIDERS: ADMIT Student in an Organized Health Care Education/Training Program; ATTEND Internal Medicine